=== PATIENT | male | born 1965 | race Caucasian/White ===

== ENCOUNTER → 2016-09-22 | Outpatient (CLI) | payer BC ==
[~2016-09-22] MED LIST: OMNIPAQUE 350 MG/ML, 100ML BOTTLE ONE
== END | disposition home or self-care (01) ==
LOC: CFH 11:16
PROVIDERS: ATTEND Urology
DX: N28.1 Cyst of kidney, acquired (principal); C64.9 Malignant neoplasm of unspecified kidney, except renal pelvis; N40.1 Benign prostatic hyperplasia with lower urinary tract symptoms; Z90.5 Acquired absence of kidney; Z98.890 Other specified postprocedural states
CPT/HCPCS: 74170; 82565; Q9967

== ENCOUNTER → 2016-12-01 | Outpatient (CLI) | payer BC ==
[~2016-12-01] MED LIST changes: +APIX5TAB PO; +ASPI-621 PO; +FLEC100T PO; +METO25TA35 PO
== END | disposition home or self-care (01) ==
LOC: CFH 08:31
PROVIDERS: ATTEND Internal Medicine Cardiovascular Disease
DX: I48.91 Unspecified atrial fibrillation (principal)
CPT/HCPCS: 71020; 75572; 82565; Q9967

== ENCOUNTER 2016-12-04 06:31 | Observation (INO) | payer BC ==
[~2016-12-04] VITALS: Ht 177.8 cm; Wt 99.4 kg
[2016-12-04] MEDS ORDERED: SODIUM CHLORIDE 0.9% 1,000 ML IV SCH ×2 (06:43→07:00)
[2016-12-04 06:49] VITALS: BP 123/84
[2016-12-04] MEDS ORDERED: METO25TA35 PO (07:00)
[2016-12-04] MEDS ORDERED: ASPI-621 PO (07:00)
[2016-12-04] MEDS ORDERED: FLEC100T PO (07:00)
[2016-12-04 07:25] LABS: HEMATOCRIT 48.7 % (39.2-51.8); HEMOGLOBIN 16.6 g/dL (13.7-18.0); WHITE BLOOD COUNT 6.7 x10^3/uL (3.4-10)
[2016-12-04] MEDS ORDERED: MIDAZOLAM 1 MG/ML, 5ML ONE (07:33)
[2016-12-04] MEDS ORDERED: FENTANYL PF 250 MCG/5ML ONE ×2 (07:34→08:00)
[2016-12-04 07:35] LABS: ASPARTATE AMINO TRANSFERASE 15 U/L (15-37); BLOOD UREA NITROGEN 12 mg/dL (7-18)
[2016-12-04] MEDS ORDERED: ISOPROTERENOL 0.2MG/ML, 5ML ONE (07:45)
[2016-12-04] MEDS ORDERED: ADENOSINE 6 MG/2 ML ONE (07:45)
[2016-12-04] MEDS ORDERED: HEPARIN 1,000 UNITS/ML, 10ML ONE ×3 (07:45→08:59)
[2016-12-04] MEDS ORDERED: LIDOCAINE 2%, 20ML ONE (07:45)
[2016-12-04] MEDS ORDERED: PROTAMINE SULFATE 10 MG/ML, 25ML ONE (08:00)
[2016-12-04] MEDS ORDERED: ONDANSETRON 2MG/ML, 2ML ONE (08:00)
[2016-12-04] MEDS ORDERED: PROPOFOL 10 MG/ML, 20ML ONE (08:00)
[2016-12-04] MEDS ORDERED: ROCURONIUM 10 MG/ML ONE (08:00)
[2016-12-04] MEDS ORDERED: SUCCINYLCHOLINE 20 MG/ML, 10ML ONE (08:00)
[2016-12-04] MEDS ORDERED: DEXAMETHASONE 4 MG/ML, 1ML ONE (08:00)
[2016-12-04] MEDS ORDERED: PROTAMINE SULFATE 10 MG/ML, 5ML ONE ×2 (08:59→10:36)
[2016-12-04] MEDS ORDERED: FENTANYL PF 100 MCG/2ML ONE (10:36)
[2016-12-04] MEDS ORDERED: ZOLPIDEM 5MG TABLET PO PRN (11:00)
[2016-12-04] MEDS ORDERED: ACETAMINOPHEN 325 MG TABLET PO PRN ×2 (11:00→11:30)
[2016-12-04] MEDS ORDERED: MIDAZOLAM 1 MG/ML, 2ML IV PRN (11:30)
[2016-12-04] MEDS ORDERED: OXYcodone 5 MG/5 ML ORAL.SOL UDC PO PRN (11:30)
[2016-12-04] MEDS ORDERED: FENTANYL PF 100 MCG/2ML IV PRN (11:30)
[2016-12-04] MEDS ORDERED: MEPERIDINE/PF 25MG/0.5ML IVPush PRN (11:30)
[2016-12-04] MEDS ORDERED: PROMETHAZINE 25 MG/ML, 1ML IV PRN (11:30)
[2016-12-04] MEDS ORDERED: HYDROmorphone 1 MG/ML, 1ML IV PRN (11:30)
[2016-12-04] MEDS ORDERED: ONDANSETRON 2MG/ML, 2ML IVPush PRN (11:30)
[2016-12-04] MEDS ORDERED: OXYcodone 5 MG/5 ML ORAL.SOL UDC ONE (11:50)
[2016-12-04] MEDS ORDERED: ACETAMINOPHEN 325 MG TABLET ONE (11:51)
[2016-12-04] MEDS ORDERED: ACETAMINOPHEN 650 MG/20.3 ML UDC ONE (11:51)
[2016-12-04] MEDS: APIXABAN 5 MG TABLET PO SCH ×2 (11:55→20:11)
[2016-12-04 12:56] VITALS: BP 118/76
[2016-12-04 19:14] VITALS: BP 122/74
[2016-12-04] MEDS: FLECAINIDE 100MG TABLET PO SCH (20:11)
[2016-12-04] MEDS: METOPROLOL TARTRATE 25 MG TABLET PO SCH (20:12)
[2016-12-04] MEDS ORDERED: METOPROLOL TARTRATE 25 MG TABLET PO SCH (21:00)
[2016-12-05 01:30] VITALS: BP 115/70
[2016-12-05] MEDS ORDERED: APIX5TAB PO (08:18)
[2016-12-05] MEDS: FLECAINIDE 100MG TABLET PO SCH (09:03)
[2016-12-05] MEDS: APIXABAN 5 MG TABLET PO SCH (09:03)
[2016-12-05] MEDS: METOPROLOL TARTRATE 25 MG TABLET PO SCH (09:03)
[2016-12-05 09:10] VITALS: BP 121/73
[2016-12-05] MEDS ORDERED: PNEUMOCOCCAL 23 VACCINE IM-VACC ONE (12:00)
== END 2016-12-05 12:12 | disposition home or self-care (01) ==
LOC: CACL 06:31 → ORIP 11:00 → 5SO 12:22
PROVIDERS: ADMIT Internal Medicine Cardiovascular Disease; ATTEND Internal Medicine Cardiovascular Disease
DX: I48.0 Paroxysmal atrial fibrillation (principal); I48.4 Atypical atrial flutter; G47.30 Sleep apnea, unspecified; R00.2 Palpitations; Z85.53 Personal history of malignant neoplasm of renal pelvis; Z23 Encounter for immunization
CPT/HCPCS: 36415; 80053; 85025; 85347; 85610; 85730; 90471; 90732; 93005; 93306; 93312; 93321; 93325; 93613; 93655; 93656; 93662; C1730; C1732; C1759; C1766; C1893; C1894; G0008; G0378; J0330; J1100; J1644; J2250; J2405; J2704; J2720; J3010; J3490; 96376; J0153

== ENCOUNTER 2020-01-30 08:42 | Outpatient (CLI) | payer BC ==
[~2020-01-30 08:42] MED LIST changes: -ASPI-621 PO; +ASPI81TA45 PO; -OMNIPAQUE 350 MG/ML, 100ML BOTTLE ONE
== END 2020-01-30 23:59 | disposition home or self-care (01) ==
LOC: CVU 08:42
PROVIDERS: ATTEND Nurse Practitioner Family
DX: I37.1 Nonrheumatic pulmonary valve insufficiency (principal); I48.91 Unspecified atrial fibrillation
CPT/HCPCS: 93306

== ENCOUNTER → 2020-06-29 | Outpatient (CLI) | payer BC | END | disposition home or self-care (01) | LOC: STAR 10:18 | PROVIDERS: ATTEND Internal Medicine Cardiovascular Disease | DX: U07.1 COVID-19 (principal) | CPT/HCPCS: U0003; U0005 ==

== ENCOUNTER 2020-08-09 05:55 | Observation (INO) | payer BC ==
[~2020-08-09] VITALS: Ht 175.3 cm; Wt 97.9 kg
[2020-08-09] MEDS ORDERED: SODIUM CHLORIDE 0.9% 1,000 ML IV SCH (06:30)
[2020-08-09] MEDS ORDERED: PLEASE ENTER HEIGHT AND WEIGHT MC SCH (06:30)
[2020-08-09] MEDS ORDERED: ASPI81TA45 PO (06:41)
[2020-08-09 07:15] LABS: BASOPHILS % (AUTO) 0 % (0-1); EOSINOPHILS % (AUTO) 1 % (1-7); LYMPHOCYTES % (AUTO) 28 % (22-44); MEAN CORPUSCULAR HEMOGLOBIN 32.4 pg (27.5-34.5); MEAN PLATELET VOLUME 6.4 fL (7.4-10.4); MONOCYTES % (AUTO) 8 % (2-9); NEUTROPHILS % (AUTO) 63 % (42-75); PLATELET COUNT 261 x10^3/uL (130-400); RED BLOOD COUNT 4.66 x10^6/uL (4.38-5.82)
[2020-08-09 07:23] LABS: PROTHROMBIN TIME 10.7 Seconds (9.6-11.5)
[2020-08-09 07:24] LABS: ALANINE AMINOTRANSFERASE 39 U/L (12-78); ALBUMIN 3.8 g/dL (3.4-5.0); ANION GAP 7 mmol/L (5-15); CALCIUM 8.6 mg/dL (8.5-10.1); CHLORIDE 110 mmol/L (98-107); CREATININE 0.88 mg/dL (0.7-1.3)
[2020-08-09 07:26] LABS: ALKALINE PHOSPHATASE 83 U/L (45-117); BILIRUBIN,TOTAL 0.3 mg/dL (0.2-1.0); TOTAL PROTEIN 7.2 g/dL (6.4-8.2)
[2020-08-09] MEDS ORDERED: MIDAZOLAM 1 MG/ML, 2ML ONE (07:45)
[2020-08-09] MEDS ORDERED: FENTANYL PF 250 MCG/5ML ONE (07:45)
[2020-08-09] MEDS ORDERED: DEXAMETHASONE 4 MG/ML, 1ML ONE ×2 (07:47)
[2020-08-09] MEDS ORDERED: ROCURONIUM 10MG/ML,5ML ONE (07:47)
[2020-08-09] MEDS ORDERED: PROPOFOL 10 MG/ML, 20ML ONE (07:47)
[2020-08-09] MEDS ORDERED: ONDANSETRON 2MG/ML, 2ML ONE (08:47)
[2020-08-09] MEDS ORDERED: LIDOCAINE 1%, 20ML ONE (08:59)
[2020-08-09] MEDS ORDERED: HEPARIN 1,000 UNITS/ML, 10ML ONE ×2 (09:43)
[2020-08-09] MEDS ORDERED: NEOSTIGMINE 1 MG/ML, 10ML ONE (12:06)
[2020-08-09] MEDS ORDERED: GLYCOPYRROLATE 0.2MG/1ML, 5ML ONE (12:07)
[2020-08-09] MEDS ORDERED: APIXABAN 5 MG TABLET ONE (12:12)
[2020-08-09] MEDS ORDERED: ALBUTEROL SULFATE 2.5 MG/3 ML NPPB PRN (12:30)
[2020-08-09] MEDS ORDERED: hydrALAzine 20 MG/ML, 1ML IV PRN (12:30)
[2020-08-09] MEDS ORDERED: PROMETHAZINE 25 MG/ML, 1ML IVPush PRN (12:30)
[2020-08-09] MEDS ORDERED: MIDAZOLAM 1 MG/ML, 2ML IV PRN (12:30)
[2020-08-09] MEDS ORDERED: EPHEDRINE 50 MG/ML, 1ML IVPush PRN (12:30)
[2020-08-09] MEDS ORDERED: PROMETHAZINE 12.5 MG SUPP PR PRN (12:30)
[2020-08-09] MEDS ORDERED: DIAZEPAM 5 MG/ML, 2ML IVPush PRN (12:30)
[2020-08-09] MEDS ORDERED: MEPERIDINE/PF 25MG/0.5ML IVPush PRN (12:30)
[2020-08-09] MEDS ORDERED: LABETALOL 5MG/ML, 20ML IV PRN (12:30)
[2020-08-09] MEDS ORDERED: HYDROmorphone 1 MG/ML, 1ML INJ IVPush PRN (12:30)
[2020-08-09] MEDS ORDERED: DIPHENHYDRAMINE 50 MG/ML, 1ML IVPush PRN ×2 (12:30)
[2020-08-09] MEDS ORDERED: FENTANYL PF 100 MCG/2ML IV PRN (12:30)
[2020-08-09] MEDS ORDERED: OXYcodone 5 MG/5 ML ORAL.SOL UDC PO PRN (12:30)
[2020-08-09] MEDS ORDERED: ACETAMINOPHEN 325 MG TABLET PO PRN (12:30)
[2020-08-09] MEDS ORDERED: ONDANSETRON 2MG/ML, 2ML IVPush PRN (12:30)
[2020-08-09] MEDS ORDERED: APIXABAN 5 MG TABLET PO ONE (13:00)
[2020-08-09 13:39] VITALS: BP 127/75
[2020-08-09 19:42] VITALS: BP 113/71
[2020-08-09] MEDS: COLCHICINE 0.6 MG CAPSULE PO SCH (20:39)
[2020-08-09] MEDS: APIXABAN 5 MG TABLET PO SCH (20:40)
[2020-08-09] MEDS: FLECAINIDE 100MG TABLET PO SCH (20:40)
[2020-08-09 23:12] VITALS: BP 118/77
[2020-08-10 01:57] VITALS: BP 111/67
[2020-08-10 06:48] VITALS: BP 126/70
[2020-08-10] MEDS: FLECAINIDE 100MG TABLET PO SCH (09:30)
[2020-08-10] MEDS: APIXABAN 5 MG TABLET PO SCH (09:30)
[2020-08-10] MEDS: COLCHICINE 0.6 MG CAPSULE PO SCH (09:30)
[2020-08-10] MEDS ORDERED: COLC0.6C3 PO (09:36)
[2020-08-10] MEDS ORDERED: APIX5TAB PO (09:36)
== END 2020-08-10 11:34 | disposition home or self-care (01) ==
LOC: CACL 05:55 → 5SO 12:16 → CACL 13:57 → DCLOUNGE 08-10 11:30
PROVIDERS: ADMIT Internal Medicine Cardiovascular Disease; ATTEND Internal Medicine Cardiovascular Disease
DX: I48.91 Unspecified atrial fibrillation (principal); Z20.822 Contact with and (suspected) exposure to COVID-19; I48.4 Atypical atrial flutter; I10 Essential (primary) hypertension; G47.33 Obstructive sleep apnea (adult) (pediatric); Z79.01 Long term (current) use of anticoagulants; Z79.899 Other long term (current) drug therapy
CPT/HCPCS: 36415; 71046; 80053; 85025; 85610; 85730; 87635; 93005; 93306; 93312; 93321; 93325; 93356; 93656; 93657; 93662; C1730; C1732; C1759; C1766; C1893; C1894; G0378; J1100; J1644; J2250; J2405; J2704; J2710; J3010; J3490; 85347

== ENCOUNTER 2020-08-30 19:21 | Emergency (ER) | payer BC ==
[~2020-08-30] VITALS: Ht 177.8 cm; Wt 95.8 kg
[~2020-08-30 19:21] MED LIST changes: +COLC0.6C3 PO
[2020-08-30] MEDS ORDERED: DILTIAZEM 5 MG/ML, 5ML ONE (20:13)
[2020-08-30] MEDS ORDERED: PROPOFOL 10 MG/ML, 20ML ONE (20:13)
[2020-08-30] MEDS ORDERED: ADENOSINE 6 MG/2 ML ONE (20:13)
--- NOTE | 2020-08-30 20:23 | NUR ---
PT TO ROOM 28 W/ C/O PALPITATIONS ON SUNDAY NIGHT. PT STATES HX A FIB/FLUTTER AND HOPES TO COME OUT OF IT BUT DIDN'T. PT STATES HE CALLED HIS RN DELIVERY TODAY AND NEVER GOT A RESPONSE AND DECIDED TO COME TO [facility]. HAS BEEN TAKING ELIQUIS EVERYDAY PRESCRIBED. PT RESTING ON RALLEN. NADN. MONITORS APPLIED. HR STEADY AT 133-[address] [facility] [address]ARDI[facility]. PT AGREEABLE.
[2020-08-30] MEDS ORDERED: PROPOFOL 10 MG/ML, 20ML IVPush ONE (20:30)
[2020-08-30] MEDS ORDERED: DILTIAZEM 5 MG/ML, 5ML IVPush ONE (20:30)
[2020-08-30] MEDS ORDERED: ADENOSINE 6 MG/2 ML IVPush ONE ×2 (20:30)
[2020-08-30] MEDS ORDERED: SODIUM CHLORIDE 0.9% 1,000ML IVBOLUS ONE (20:30)
[2020-08-30 20:41] LABS: BASOPHILS % (AUTO) 0 % (0-1); EOSINOPHILS % (AUTO) 1 % (1-7); LYMPHOCYTES % (AUTO) 31 % (22-44); MEAN CORPUSCULAR HEMOGLOBIN 31.9 pg (27.5-34.5); MEAN CORPUSCULAR HGB CONC 33.9 g/dL (33.2-36.2); MEAN PLATELET VOLUME 6.7 fL (7.4-10.4); MONOCYTES % (AUTO) 9 % (2-9); NEUTROPHILS % (AUTO) 59 % (42-75); PLATELET COUNT 306 x10^3/uL (130-400); RED BLOOD COUNT 4.75 x10^6/uL (4.38-5.82); RED CELL DISTRIBUTION WIDTH 13.1 % (9.4-14.8)
--- NOTE | 2020-08-30 20:46 | NUR ---
CONSENT FOR CARDIOVERSION SIGNED BY PT, THIS RN, AND ERP.
[2020-08-30 20:52] LABS: ALBUMIN 3.7 g/dL (3.4-5.0); ANION GAP 7 mmol/L (5-15); CALCIUM 8.6 mg/dL (8.5-10.1); CHLORIDE 108 mmol/L (98-107)
[2020-08-30 20:58] LABS: CREATININE 0.94 mg/dL (0.7-1.3); TROPONIN I < 0.015 ng/mL (0.000-0.045)
--- NOTE | 2020-08-30 21:27 | NUR ---
CARDIOVERSION: START TIME 2107 50 MG PROPOFOL AT 2107 20 MG PROPOFOL AT 2109 200 J AT 2110 PT NOTED TO BE IN SR 79 AT 2110 END OF PROCEDURE 2114 PT AWAKE AND ALERT X4 AT END OF PROCEDURE.
--- NOTE | 2020-08-30 21:28 | NUR ---
SEE PAPER CHART FOR ALL VS DURING PROCEDURE AND IMMEDIATELY POST PROCEDURE.
--- NOTE | 2020-08-30 21:33 | NUR ---
REPORT GIVEN TO MELL LINDO RN.
[2020-08-30 22:24] VITALS: BP 93/72
== END 2020-08-30 22:26 | disposition home or self-care (01) ==
LOC: ED 19:51
DX: I48.92 Unspecified atrial flutter (principal); I48.91 Unspecified atrial fibrillation; Z87.891 Personal history of nicotine dependence
CPT/HCPCS: 36415; 71046; 80048; 82040; 84484; 85025; 92960; 93005; 96361; 96374; 99285; J7030